=== PATIENT | female | born 1975 ===

== ENCOUNTER 2022-09-23 10:12 | Day surgery (SDC) | payer OTHER ==
[2022-09-20 15:48] LABS: BASOPHILS PERCENT AUTO 0 % (0-2); EOSINOPHILS PERCENT AUTO 0 % (0-6); Hematocrit 38.8 % (33.0-51.0); Hemoglobin 13.1 g/dL (11.5-16.0); IMMATURE GRAN ABSOLUTE AUTO 0.01 K/mm3 (0.00-0.10); IMMATURE GRAN PERCENT AUTO 0 % (0-1); LYMPHOCYTES ABSOLUTE AUTO 1.31 K/mm3 (0.84-5.20); LYMPHOCYTES PERCENT AUTO 26 % (21-46); MONOCYTES ABSOLUTE AUTO 0.42 K/mm3 (0.16-1.47); MONOCYTES PERCENT AUTO 8 % (4-13); Mean Corpuscular HGB 29.4 pg (26.0-34.0); Mean Corpuscular HGB Conc 33.8 g/dL (31.5-36.5); Mean Corpuscular Volume 87 fL (80-100); Mean Platelet Volume 8.8 fL (9.1-12.4); NEUTROPHILS ABSOLUTE AUTO 3.24 K/mm3 (1.96-9.15); NEUTROPHILS PERCENT AUTO 65 % (41-73); Platelet Count 366 K/mm3 (150-400); RDW Coefficient Variation 13.4 % (11.7-14.2); RDW Standard Deviation 42.6 fL (35.1-46.3); Red Blood Cell Count 4.46 M/mm3 (3.80-5.20); White Blood Cell Count 4.98 K/mm3 (4.00-11.30)
[2022-09-20 19:26] LABS: Bun/Creatinine Ratio 19.1 (12.0-20.0); Calcium, Blood 9.2 mg/dL (8.5-10.1); Creatinine, Blood 0.84 mg/dL (0.40-1.00); Potassium, Blood 3.8 mmol/L (3.5-5.5)
[~2022-09-23] VITALS: Ht 165.1 cm; Wt 80.8 kg
[~2022-09-23 10:12] MED LIST: BLACK COHASH PO; Buspirone HCl15 MG PO; CIDAFLEX TABLE1 EAC1 PO; FISH OIL PO; FLUC150A PO; HYDHCL25 PO; HYDROCODONE-AC1 EA10 PO; IBUP800 PO; IRON18 MG PO; METF500 PO; SUMA25 PO; TIZA4 PO; TRAZ50 PO; VALACYCLOVIR500 MG PO
--- NOTE | 2022-09-23 15:56 | NUR ---
Student consent statement. Pt consented this 2nd year [facility] [place] nursing assistant to participate in her care today 09/23/2022. CT
[2022-09-23] MEDS ORDERED: Buspirone HCl15 MG PO (16:42)
[2022-09-23] MEDS ORDERED: VENL75ER PO (16:58)
--- NOTE | 2022-09-23 17:38 | NUR ---
PT ARRIVED TO UNIT AT APROX 1445 FROM PACU. LAP SITES X'S 4 C/D/I. PT SBA TO BATHROOM, VOIDED 100ML. PT MEDICATED WITH ROXICODONE FOR PAIN. TOLERATING SMALL AMT REGULAR DIET WITH NO N/V. AMBULATING IN ROOM. ALL DC CRITERIA MET. WILL DC HOME.
--- NOTE | 2022-09-23 18:27 | NUR ---
DISCHARGE PT DICHARGED HOME FROM UNITAT APROX 1828. PT GIVEN WRITTEN AND VERBAL DC INSTRUCTIONS (PRE-PRINTED POSTOP ORDERS) AND VERBALIZED UNDERSTANDING OF THESE INSTRUCTIONS. IV'S REMOVED BY RN STUDENT (OBSERVED) ALL QUESTIONS ANSWERED. WC TO CAR.
== END 2022-09-23 18:34 | disposition home or self-care (01) ==
LOC: ORSCMMR 10:12 → ORD 11:15 → ORSCMMR 11:45 → ORD 11:45 → SURS 14:13 → ORSCMMR 18:34
PROVIDERS: Obstetrics & Gynecology
PROC: 8E0W4CZ Robotic Assisted Procedure of Trunk Region, Percutaneous Endoscopic Approach (ICD-10-PCS; principal; 2022-09-23 11:45)
PROC: 0UT7FZZ Resection of Bilateral Fallopian Tubes, Via Natural or Artificial Opening With Percutaneous Endoscopic Assistance (ICD-10-PCS; principal; 2022-09-23 11:45)
PROC: 0UT9FZZ Resection of Uterus, Via Natural or Artificial Opening With Percutaneous Endoscopic Assistance (ICD-10-PCS; principal; 2022-09-23 11:45)
DX: N92.0 Excessive and frequent menstruation with regular cycle (principal); D25.9 Leiomyoma of uterus, unspecified; N94.6 Dysmenorrhea, unspecified; Z87.891 Personal history of nicotine dependence; E28.2 Polycystic ovarian syndrome; G62.9 Polyneuropathy, unspecified; M79.7 Fibromyalgia; F41.9 Anxiety disorder, unspecified; Z79.899 Other long term (current) drug therapy
CPT/HCPCS: 58571; S2900; 36415; 80048; 82947; 84703; 85025; 86850; 86900; 86901; 88307; A9270; J0690; J1100; J1170; J1885; J2250; J2370; J2405; J2704; J2795; J3010; J7120